=== PATIENT | male | born 1955 | race Asian ===

== ENCOUNTER 2017-06-28 10:33 | Outpatient (CLI) | payer OTHER | END 2017-06-28 11:40 | disposition home or self-care (01) | LOC: RAD 10:33 | DX: M19.072 Primary osteoarthritis, left ankle and foot (principal); M19.041 Primary osteoarthritis, right hand; M19.042 Primary osteoarthritis, left hand; M19.071 Primary osteoarthritis, right ankle and foot ==

== ENCOUNTER 2019-06-09 09:48 | Outpatient (CLI) | payer OTHER | END 2019-06-09 13:00 | disposition home or self-care (01) | LOC: RAD 09:48 | DX: M85.89 Other specified disorders of bone density and structure, multiple sites (principal) ==

== ENCOUNTER 2020-07-14 05:30 | Emergency (ER) | payer OTHER ==
[~2020-07-14] VITALS: Ht 177.8 cm; Wt 70.8 kg
[2020-07-14 06:18] LABS: PLATELET COUNT 263 K/uL (142-355)
[2020-07-14 06:29] LABS: POTASSIUM 3.9 mmol/L (3.6-5.2)
[2020-07-14 07:50] VITALS: TEMP 97.8
[2020-07-14 08:07] VITALS: BP 133/82
== END 2020-07-14 08:29 | disposition home or self-care (01) ==
LOC: ED 05:35
PROVIDERS: Emergency Medicine Emergency Medical Services
DX: S00.83XA Contusion of other part of head, initial encounter (principal); R53.1 Weakness; W01.198A Fall on same level from slipping, tripping and stumbling with subsequent striking against other object, initial encounter; Y92.89 Other specified places as the place of occurrence of the external cause
CPT/HCPCS: 80053; 80320; 83690; 85027; 96360; 99284